=== PATIENT | male | born 1970 | race Caucasian/White ===

== ENCOUNTER 2017-09-07 05:31 | Day surgery (SDC) | payer OTHER ==
[2017-09-06 11:00] VITALS: BMI 25.0
[2017-09-07] MEDS ORDERED: LIDOCAINE HCL 1%, 10 MG/ML (20ML VIAL) ONE (09:40)
[2017-09-07] MEDS ORDERED: BUPIVACAINE HCL/PF 0.5% (5MG/ML) 10 ML VIAL ONE (09:40)
[2017-09-07] MEDS ORDERED: fentaNYL CITRATE 250 MCG/5 ML VIAL ONE (09:44)
[2017-09-07] MEDS ORDERED: PROPOFOL 20 ML ONE (09:44)
[2017-09-07] MEDS ORDERED: ROCURONIUM BROMIDE 50 MG/5 ML VIAL ONE (09:45)
[2017-09-07] MEDS ORDERED: LIDOCAINE HCL/PF 2% SDV 5ML VIAL ONE (09:45)
[2017-09-07] MEDS ORDERED: MIDAZOLAM HCL 2 MG/2 ML SINGLE DOSE VIAL ONE (09:45)
[2017-09-07] MEDS ORDERED: CLINDAMYCIN 600 MG PREMIX BAG IVPB ONE (10:45)
[2017-09-07] MEDS ORDERED: CLINDAMYCIN PHOSPHATE 600 MG/4 ML VIAL ONE (10:50)
[2017-09-07] MEDS ORDERED: LIDOCAINE HCL 1%, 10 MG/ML (20ML VIAL) INF ONE (12:10)
[2017-09-07] MEDS ORDERED: BUPIVACAINE HCL/PF 0.5% (5MG/ML) 10 ML VIAL IJ ONE (12:11)
[2017-09-07] MEDS ORDERED: oxyCODONE HCL 5 MG TABLET PO PRN (12:22)
[2017-09-07] MEDS ORDERED: ONDANSETRON 4 MG/2 ML VIAL IVPUSH PRN (12:22)
[2017-09-07] MEDS ORDERED: ACETAMINOPHEN 325 MG TABLET (FP) PO PRN (12:22)
[2017-09-07] MEDS ORDERED: LACTATED RINGERS SOLUTION 1,000 ML IV SCH (12:30)
--- NOTE | 2017-09-07 12:44 | OP ---
Operative Note - Note: Operative Date: 09/07/17 Pre-Operative Diagnosis: Incarcerated left inguinal hernia. Operation: Repair of incarceratedc left inguinal hernia with 2 plugs and a mesh. Findings: Large direct defect on the posterior wall of the left inguinal canal , with incarceration of retroperitoneal fat. Defect extending from the pubic tubercle to the internal ring, with very attenuated transversalis fascia. Implants: Plugs (2) and mesh. Post-Operative Diagnosis: Other (Large direct defect , on the left inguinal region, from pubic tubercle to the internal ring. Very attenuated and stretched tranversalis fascia.) Surgeon: Paula Tejeda Survey Instrument Operator: Jane Singh Anesthesia: General Estimated Blood Loss (mls): 5 Operative Report Dictated: Yes
--- NOTE | 2017-09-07 13:47 | OP ---
DATE OF OPERATION: 09/07/2017 PREOPERATIVE DIAGNOSIS: Large incarcerated left inguinal hernia. POSTOPERATIVE DIAGNOSIS: Large incarcerated left direct inguinal hernia. OPERATIVE PROCEDURE: Repair of incarcerated left inguinal hernia with 2 plugs and a mesh. SURGEON: Melinda Tejeda MD SECTION CUTTER: SAHIL Jauregui ANESTHESIA: General anesthesia. OPERATIVE DESCRIPTION: This 47-year-old man had a large swelling in the left groin, which was markedly increased on strenuous activity. The mass extended from the pubic tubercle all the way to the anterior superior iliac spine and was painful. The patient was brought in for repair of the hernia. Risks, benefits, and complications have been discussed with the patient. The patient was given general anesthesia. The groin was painted and draped. A time-out was called. He was given a gram of clindamycin. An incision was made in the left groin along the skin crease 2 fingerbreadths above the inguinal ligament over a line joining the pubic tubercle to the anterior superior iliac spine. The incision was deepened through the skin, subcutaneous tissue, and Hailee fascia. There was a large bulge, which was carefully from the rest of the structures. This consisted of a lot of fat medial to the cord structures as well as possibly bladder . This was from the rest of the structures. This was carried all the way from the external ring, and into the abdominal wall. The external oblique aponeurosis was then dissected and incised along the direction of the fibers through the external ring all the way towards the internal ring. The cord structures were then from the external oblique and the inguinal canal circumferentially. There was markedly stretched and attenuated transversalis fascia, bulging from the internal ring and the epigastric vessels all the way down to the pubic tubercle. This was carefully circumferentially. Then a finger was introduced through the internal ring, and the structures behind the transversalis fascia were carefully all the way to the pubic tubercle. This consisted mainly of retroperitoneal fat and medially, the bladder. This was all the way from the transversalis fascia. Once this was done, the defect was found to be all the way across the posterior wall of the inguinal canal, from the pubic tubercle towards the internal ring with a markedly stretched, attenuated transversalis fascia. Thus, 2 plugs were then placed behind the transversalis fascia. Each one was attached to each other. This was anchored behind the internal oblique and transversus abdominis muscle with 0 Prolene suture. The suture was passed through the internal oblique and transversus abdominis muscle, brought through the internal ring and then through the outer leaf of the plug, and was reinserted through the internal ring, above and medial to the internal ring. A 2nd suture was then likewise passed, but this caught the outer leaf of the inner plug and the medial leaf of the lateral plug and was, again, brought through the internal ring and through the abdominal wall. A 3rd suture was passed above and lateral to the internal ring and then caught the outer leaf of the lateral plug and was reinserted through the internal ring and brought out through the transversalis and internal oblique muscles. The 2 plugs were then inserted, and the Prolene suture was pulled out. The mash was placed posteriorly, behind the transversalis fascia. The inferior leaf of the innermost plug was sutured to the Jose Guadalupe's ligament with 2-0 Prolene suture. Two plugs were then placed appropriately behind the transversalis fascia all the way across the posterior wall of the inguinal canal. A large mesh was then placed over the transversalis fascia across the internal oblique and the inguinal ligament. This was anchored at the level of the pubic tubercle with 0 Prolene sutures. The inferior leaf of the mesh was placed over the shelving edge of the inguinal ligament, and anchored with a VersaTack tacking device. The superior leaf of the mesh was placed over the internal oblique muscle, and the 20 Prolene suture, holding the plug behind the abdominal wall, was brought through the mesh, and the knot was fastened. The lateral suture, was brought over the 2 limbs of the mesh, as it came around the internal ring to create a new internal ring. The mesh was adequately placed across the defect, and over the internal oblique muscle, and the shelving edge of the inguinal ligament, all the way lateral to the cord structures. The defect was, thus, adequately repaired. The wound was irrigated. Hemostasis was satisfactory. Then 0.5% Marcaine was injected into the wound around the ilioinguinal nerve and hypogastric nerves. Next, the oblique aponeurosis was then approximated with continuous 2-0 Vicryl sutures, and a new external ring was created. The defect was then approximated with buried interrupted 3-0 Vicryl sutures. The subcutaneous fat and the deep dermal layer was approximated with buried interrupted 4-0 Biosyn sutures. The skin was also approximated with continuous subcuticular closure with 4-0 Biosyn sutures. Sponge count and instrument count was correct. The patient was extubated and returned to the recovery room in satisfactory and stable condition. Dermabond applied across the skin edges. Then 0.5% Marcaine was injected under the skin, Hailee fascia, and the deep layer of the abdominal wall. Sj [id number] MTDD
[2017-09-07 16:19] VITALS: BP 114/72; PULSE 76; TEMP 98.5
== END 2017-09-07 16:20 | disposition home or self-care (01) ==
LOC: JASU-SURG 05:31
PROVIDERS: ATTEND Specialist
PROC: 0YU60JZ Supplement Left Inguinal Region with Synthetic Substitute, Open Approach (ICD-10-PCS; principal; 2017-09-07 10:00)
DX: K40.30 Unilateral inguinal hernia, with obstruction, without gangrene, not specified as recurrent (principal)
CPT/HCPCS: 94760